=== PATIENT | male | born 1975 | race Caucasian/White ===

== ENCOUNTER 2020-10-05 15:03 | Observation (INO) ==
[2020-10-05 17:30] LABS: Basophils # (auto) 0.04 K/uL (0-0.2); Basophils % (auto) 0.3 %; Eosinophils # (auto) 0.16 K/uL (0-0.5); Eosinophils % (auto) 1.4 %; Hematocrit (blood only) 44.5 % (42-52); Hemoglobin 15.4 g/dL (14.0-18.0); Immature Granulocytes # (auto) 0.03 K/uL (0.00-0.02); Immature Granulocytes % (auto) 0.3 %; Lymphocytes # (auto) 2.08 K/uL (1.2-3.4); Lymphocytes % (auto) 17.6 %; Mean Corpuscular Hemoglobin 30.9 pg (25-34); Mean Corpuscular Hgb Conc 34.6 g/dL (32-36); Mean Corpuscular Volume 89.4 fL (80-100); Mean Platelet Volume 9.6 fL (7.4-10.4); Monocytes % (auto) 8.5 %; Neutrophils # (auto) 8.52 K/uL (1.4-6.5); Neutrophils % (auto) 71.9 %; Platelet Count 214 K/uL (130-400); RDW Coefficient of Variation 13.2 % (11.5-14.5); RDW Standard Deviation 43.5 fL (36.4-46.3); Red Blood Count 4.98 M/uL (4.7-6.1); White Blood Count 11.83 K/uL (4.8-10.8)
[2020-10-05 17:51] LABS: Albumin Level 4.1 gm/dl (3.4-5.0); BUN Creatinine Ratio 11.2 (10-20); Calcium 9.3 mg/dl (8.5-10.1); Creatinine Clr Calc Pharmacy 122.8 ml/min; Est GFR (African American) 118.3 ml/min; Est GFR (Non-African American) 102.1 ml/min
[2020-10-05 17:54] LABS: Albumin Globulin Ratio 1.1 (0.9-2); Bilirubin,Total 1.2 mg/dl (0.2-1); Globulin 3.6 gm/dl (2.5-4.0); Total Protein 7.7 gm/dl (6.4-8.2)
--- NOTE | 2020-10-05 18:03 | Emergency Department Note ---
History of Present Illness General Chief Complaint: Abdominal Pain Stated Complaint: ABDOMINAL PAIN Time Seen by Provider: 10/05/20 18:00 Source: patient Mode of arrival: ambulatory Limitations: no limitations History of Present Illness Provider Complaint: abdominal pain Onset (ago): day(s) (10) Pain Consistency: intermittent Location: R flank Radiation: other (Mid abdomen) Migration to: periumbilical Maximum Pain Intensity: 6 Quality: + sharp Relieved By: + nothing Exacerbated By: + bowel movement and + other (Palpation) Context: no foreign travel, no possible food poisoning, no sick contacts, no recent antibiotic use, no recent surgery/procedure, no recent injury or no history of similar episodes Associated Symptoms: + nausea and + diarrhea; no vomiting, no constipation, no hematochezia and no hematuria Treatments prior to arrival: none Home Medications Medication Instructions Recorded Confirmed Type No Known Home Medications 06/11/19 10/05/20 History Allergies Allergy/AdvReac Type Severity Reaction Status Date / Time aspirin AdvReac Unknown Verified 06/11/19 09:00 Past Med/Surg History Medical History Closed fracture of phalanx of left fourth toe Surgical History No pertinent past surgical history Social History Smoking Status: Never smoker Preferred Language: Welsh Feels Safe at Home: Yes Review of Systems See HPI for pertinent positives & negatives. and A total of 10 systems reviewed and were otherwise negative Physical Exam Vital Signs: Vital Signs - 24 hr 10/05/20 15:15 10/05/20 18:37 Temperature 36.3 C L Temperature Source Temporal Artery Sc an Pulse Rate 77 Pulse Rate [Finger ] 78 Pulse Rhythm Regular Pulse Strength Normal Respiratory Rate 16 18 Respiratory Effort / Characteristics Non-Labored Respiratory Depth Normal Respiratory Patter n Regular Blood Pressure 166/109 H Blood Pressure [Le ft Arm] 155/97 H Blood Pressure Ceci n 128 Blood Pressure Ceci n [Left Arm] 116 Pulse Oximetry 97 98 Oxygen Delivery Me thod Room Air Room Air Sepsis Recent Feve r Within 48 Hours No Sepsis New/Unexpla ined Change in Men marciano Status N/A Sepsis Action Take n by Nursing No Action Required Physical Exam: GENERAL: Wearing a mask. NAD, non-toxic. EYE EXAM: Normal conjunctiva. PERRL, no anisocoria and EOM's grossly intact w/o pain. NECK: Supple, no nuchal rigidity, no adenopathy, non-tender. No signs of meningismus. LUNGS: Clear to auscultation. Normal chest wall mechanics. HEART: NSR, no MRG. ABDOMEN: Abdomen soft, right-sided abdominal pain, negative obturators and psoas, no peritonitis normo-active bowel sounds, no masses, no rebound or guarding. BACK: No CVA TTP. SKIN: No rashes and no bruising. UPPER EXTREMITIES: Upper extremities are grossly normal. LOWER EXTREMITIES: Grossly normal, no edema. NEURO EXAM: A&O x3, cranial nerves II-XII grossly intact, normal speech, moves all 4 extremities on command w/o issue. Course Administered Medications Discontinued Medications Cefoxitin Sodium (Mefoxin) 2,000 mg in 60 mls @ 100 mls/hr IV NOW STA Stop: 10/05/20 20:34 Last Admin: 10/05/20 20:12 Dose: 100 mls/hr Documented by: [id number] Ioversol (Optiray 320 100ml) 93 ml IV ONCE ONE Stop: 10/05/20 18:44 Last Admin: 10/05/20 18:44 Dose: 93 ml Documented by: [id number] Medical Decision Making Differential Diagnosis Appendicitis, testicular torsion, infections, diverticulitis, UTI, obstruction, mesenteric ischemia, aortic pathology, inflammatory bowel disease, renal colic, PUD, pancreatitis, biliary pathology, hernia, volvulus, constipation, as well as other pathologies. Medical Records Attestation: I reviewed the patient's medical records. Home Medications Current Medication List: was personally reviewed by me Laboratory Data Attestation: I reviewed the patient's lab results. Result diagrams: 10/05/20 17:20 10/05/20 17:20 Lab Results 10/05/20 10/05/20 10/05/20 Range/Units 17:20 17:20 20:20 WBC 11.83 H (4.8-10.8) K/uL RBC 4.98 (4.7-6.1) M/uL Hgb 15.4 (14.0-18.0) g/dL Hct 44.5 (42-52) % MCV 89.4 (80-100) fL MCH 30.9 (25-34) pg MCHC 34.6 (32-36) g/dL RDW Std Deviation 43.5 (36.4-46.3) fL RDW Coeff of Hunter 13.2 (11.5-14.5) % Plt Count 214 (130-400) K/uL MPV 9.6 (7.4-10.4) fL Immature Gran % (Auto) 0.3 % Neut % (Auto) 71.9 % Lymph % (Auto) 17.6 % Hoke % (Auto) 8.5 % Eos % (Auto) 1.4 % Baso % (Auto) 0.3 % Neut # (Auto) 8.52 H (1.4-6.5) K/uL Lymph # (Auto) 2.08 (1.2-3.4) K/uL Hoke # (Auto) 1.00 H (0.11-0.59) K/uL Eos # (Auto) 0.16 (0-0.5) K/uL Baso # (Auto) 0.04 (0-0.2) K/uL Immature Gran # (Auto) 0.03 H (0.00-0.02) K/uL Sodium 133 L (136-145) mmol/L Potassium 4.0 (3.5-5.1) mmol/L Chloride 107 (98-107) mmol/L Carbon Dioxide 26 (21-32) mmol/L Anion Gap -1.0 L (3-11) BUN 10 (7-18) mg/dl Creatinine 0.90 (0.6-1.4) mg/dl Est Cr Clr Drug Dosing 122.8 ml/min Est GFR ( Amer) 118.3 ml/min Est GFR (Non-Af Amer) 102.1 ml/min BUN/Creatinine Ratio 11.2 (10-20) Glucose 90 (70-99) mg/dl Calcium 9.3 (8.5-10.1) mg/dl Total Bilirubin 1.2 H (0.2-1) mg/dl AST 15 (15-37) U/L ALT 33 (12-78) U/L Alkaline Phosphatase 72 (45-117) U/L Total Protein 7.7 (6.4-8.2) gm/dl Albumin 4.1 (3.4-5.0) gm/dl Globulin 3.6 (2.5-4.0) gm/dl Albumin/Globulin Ratio 1.1 (0.9-2) Lipase 179 (73-393) U/L COVID-19 Eval Order Covid19 at [facility] Imaging Data Radiologist's Impression: Abdomen/Pelvis CT 10/05/20 18:[address] WITH IV CONTRAST CT DOSE: 714.27 mGy.cm HISTORY: Right-sided abdominal pain. TECHNIQUE: Multiaxial CT images of the abdomen and pelvis were performed following the use of intravenous contrast. A dose lowering technique was utilized adhering to the principles of ALARA. COMPARISON STUDY: None. FINDINGS: The right lung base is clear. There is a 3 linear subpleural nodular density within the left lower lobe on image 24. This is of doubtful clinical significance given the size and location. No pneumoperitoneum. No pneumatosis. Bilateral L5 spondylolysis with associated grade 1 anterolisthesis. There is new millimeter hypodense lesion within the right hepatic dome on image 31. This is technically too small to characterize. The spleen, adrenal glands, pancreas, kidneys, and gallbladder are unremarkable. No retroperitoneal lymphadenopathy. Normal caliber abdominal aorta. The bladder is unremarkable. Trace pelvic free fluid. No bowel obstruction. There is a thick-walled and fluid-filled appendix with periappendiceal fat stranding. The appendix measures up to 1.5 cm in diameter. This is consistent with acute appendicitis. No perforation or abscess identified at this time. IMPRESSION: Acute appendicitis. ACT 112: Negative or not required by law. Electronically signed by: Francisco Muir M.D. 10/05/2020 7:43 PM [facility] Narrative Patient does present with concern for acute on chronic abdominal symptoms. The patient states that back in August the patient had a vague illness with low-grade temperature and associated uncomfortable bowel movements. The patient states that he did feel improved but within the last 10 days the patient has had increasingly more constant discomfort in his right abdomen which is nonmigratory to the mid abdomen. The patient denies any fevers chills chest pains or shortness of breath in the last 10 days. The patient has had looser stools. Th e patient does complain of some mild discomfort in the suprapubic area but denies any hematuria or dysuria. No recent heavy lifting twisting or turning or trauma. The patient denies any testicular or scrotal pain swelling or penile pain or swelling or drainage. Patient did have blood work completed along with a CT abdomen pelvis. Patient declines any pain or nausea medication at this time. Patient did secure an outpatient appointment but not to Monday. Patient is vaccinated for Covid. Patient's blood works shows white count of 11.8 with normal H&H and platelet count. The patient's kidney function is unremarkable with very mild hyponatremia. Bilirubin 1.2 the patient has no right upper quadrant pain the rest of the LFTs and lipase are normal. Patient CT of the pelvis did show concern for acute appendicitis. Patient was ordered Mefoxin and I did speak with Dr. Sharma. Dr. Sharma will take the patient to the operating room. Impression & Plan Acute appendicitis Discharge Plan Visit Data Chief Complaint: Abdominal Pain Stated Complaint: ABDOMINAL PAIN ED Provider: Jace Seymour Discharge Problem: Acute appendicitis Patient Disposition: Being Evaluated by Surgeon Forms Stand Alone Forms: My [facility] [place] [facility] Prescriptions Prescriptions: No Action No Known Home Medications RF: 0 Referrals Referrals: Traci Sam DO [Outside Practitioners] -
[2020-10-05] MEDS ORDERED: OPTIRAY 320 100ml IV ONE (18:43)
--- NOTE | 2020-10-05 19:45 | CT Scan Report ---
ABDOMEN AND PELVIS CT WITH IV CONTRAST CT DOSE: 714.27 mGy.cm HISTORY: Right-sided abdominal pain. TECHNIQUE: Multiaxial CT images of the abdomen and pelvis were performed following the use of intrave nous contrast. A dose lowering technique was utilized adhering to the principles of ALARA. COMPARISON STUDY: None. FINDINGS: The right lung base is clear. There is a 3 linear subpleural nodular density within the lef t lower lobe on image 24. This is of doubtful clinical significance given the size and location. No p neumoperitoneum. No pneumatosis. Bilateral L5 spondylolysis with associated grade 1 anterolisthesis. There is new millimeter hypodense lesion within the right hepatic dome on image 31. This is technical ly too small to characterize. The spleen, adrenal glands, pancreas, kidneys, and gallbladder are unre markable. No retroperitoneal lymphadenopathy. Normal caliber abdominal aorta. The bladder is unremark able. Trace pelvic free fluid. No bowel obstruction. There is a thick-walled and fluid-filled appendi x with periappendiceal fat stranding. The appendix measures up to 1.5 cm in diameter. This is consist ent with acute appendicitis. No perforation or abscess identified at this time. IMPRESSION: Acute appendicitis. ACT 112: Negative or not required by law. Electronically signed by: Francisco Muir M.D. 10/05/2020 7:43 PM
[2020-10-05] MEDS ORDERED: cefOXitin 2,000 MG/60 ML BAG IV STA (19:59)
[2020-10-05] MEDS ORDERED: BUPIVACAINE 0.5 % 5 MG/1 ML MPF 30ML VIAL ONE (20:38)
[2020-10-05] MEDS ORDERED: EPINEPHrine INJ 1 MG/ML AMP ONE (20:38)
--- NOTE | 2020-10-05 21:18 | History & Physical Report ---
Date of Service October 05, 2020 Assessment & Plan (1) Acute appendicitis: Plan: pt's clinical picture, labs are consistent with acute appendicitis. discussed his options/risks including but not limited to bleeding/infection/injury to another organ, dvt/pe/mi/cva etc... questions answered. will proceed tonight with lap appendectomy. Acute appendicitis type: with localized peritonitis Appendicitis abscess presence: without abscess Appendicitis gangrene presence: without gangrene Appendicitis perforation presence: without perforation Qualified Code(s): K35.30 - Acute appendicitis with localized peritonitis, without perforation or gangrene History of Present Illness Primary Care Provider: Kofi Negro DO 45-year-old male with a 1 week history of abdominal pain. Originally it was generalized but is now progressed to the right mid the right lower quadrant. Pain got worse today so he presented to the emergency room. Work-up reveals nonruptured acute appendicitis. Allergies Allergy/AdvReac Type Severity Reaction Status Date / Time aspirin AdvReac Unknown Verified 06/11/19 09:00 Home Medications Medication Instructions Recorded Confirmed Type No Known Home Medications 06/11/19 10/05/20 History Past Med/Surg History Medical History Closed fracture of phalanx of left fourth toe Surgical History No pertinent past surgical history Social History Smoking Status: Never smoker Preferred Language: Nauruan Feels Safe at Home: Yes Review of Systems All systems reviewed & are unremarkable except as noted in HPI & below Physical Exam Constitutional: WD/WN, vitals as above no acute distress and not ill appearing Eyes: PERRL, conjunctivae normal, anicteric sclerae EOM intact bilaterally ENMT: external ear and nose normal, oropharynx normal Ears: no hearing impairment Neck: trachea midline, no thyromegaly Respiratory: normal respiratory effort; no respiratory distress and does not use accessory muscles Cardiovascular: Rate/Rhythm: regular rate and regular rhythm Gastrointestinal (Abdomen): Soft. Positive right lower quadrant tenderness. Positive rebound. Skin: no rashes, warm and dry Psychiatric: Orientation: alert, oriented x 3 and cooperative Results & Data ([facility]) Vital Signs (Past 12 Hours) Vital Signs Temp Pulse Pulse Resp BP BP Pulse Ox 10/05/20 18:37 78 18 155/97 H 98 10/05/20 15:15 36.3 C L 77 16 166/109 H 97
[2020-10-05] MEDS ORDERED: ONDANSETRON INJ 2 MG/ML 2 ML VIAL ONE (21:27)
[2020-10-05] MEDS ORDERED: MIDAZOLAM HCL 1 MG/ML 2ML VIAL ONE (21:27)
[2020-10-05] MEDS ORDERED: DEXAMETHASONE SOD INJ 4 MG/ML VIAL ONE (21:27)
[2020-10-05] MEDS ORDERED: PROPOFOL IV EMULSION 10 MG/ML 20 ML VIAL IV ONE (21:27)
[2020-10-05] MEDS ORDERED: ETOMIDATE 2 MG/ML 20 ML VIAL IV ONE (21:27)
[2020-10-05] MEDS ORDERED: SUCCINYLCHOLINE 100MG/5ML SYR IV ONE (21:27)
[2020-10-05] MEDS ORDERED: KETOROLAC 30 MG/ML VIAL ONE (21:27)
[2020-10-05] MEDS ORDERED: fentaNYL citrate 100 MCG/2 ML VIAL ONE ×2 (21:28→22:23)
[2020-10-05] MEDS ORDERED: ONDANSETRON INJ 2 MG/ML 2 ML VIAL IV PRN (21:59)
[2020-10-05] MEDS ORDERED: fentaNYL citrate 100 MCG/2 ML VIAL IV PRN (21:59)
[2020-10-05] MEDS ORDERED: ePHEDrine sulfate 50 MG/ML AMP IV PRN (21:59)
[2020-10-05] MEDS ORDERED: ATROPINE SULFATE 0.1 MG/ML 10ML SYR IV PRN (21:59)
[2020-10-05] MEDS ORDERED: HYDROmorphone INJ 2 MG/ML SYR/VIAL IV PRN (21:59)
--- NOTE | 2020-10-05 21:59 | Anesthesiology Consultation ---
Date of Service October 05, 2020 Assessment & Plan ASA ASA2E Proposed Anesthesia Anesthesia Type: General Risk / Benefits Reviewed With: PT / POA / Parent / Guardian, Accepts Plan and Informed Consent Obtained History Surgery Operation Date: 10/05/20 21:30 Proposed Procedures p Laparoscopic Appendectomy(Not Applicable) - Bro Sharma DO Height/Weight Height: 5 ft 10 in Weight: 102.1 kg Allergies Allergy/AdvReac Type Severity Reaction Status Date / Time aspirin AdvReac Unknown Verified 06/11/19 09:00 Medications Home Medications Medication Instructions Recorded Confirmed Last Taken No Known Home Medications 06/11/19 10/05/20 Unknown NPO Date Last Intake of Fluids: 10/05/20 Time Last Intake of Fluids: 13:00 Date Last Intake of Solids: 10/05/20 Time Last Intake of Solids: 00:00 Past Medical History Medical History Closed fracture of phalanx of left fourth toe Exercise / Class Metabolic Activity 1 > 8 Run/Swim/Ski/Tennis Past Surgical History Surgical History No pertinent past surgical history Past Anesthesia History No Hx of Anesthesia Complications and No Family Hx of Anesthesia Complications History of PONV No Hx of PONV and No Hx of Motion Sickness Social History Smoking Status: Never smoker Review of Systems denies fever/cough/ colds/ chest pain/ SOB/ ISMAEL denies ISMAEL Physical Exam Vital Signs Last Vital Signs Temp 36.3 C L 10/05/20 15:15 Pulse 78 10/05/20 18:37 Resp 18 10/05/20 18:37 BP 155/97 H 10/05/20 18:37 Pulse Ox 98 10/05/20 18:37 ENMT Mouth: no TMJ abnormality and no dentition abnormality Thyromental Distance: > or= 3.5 Finger Breadths Mallampati Class: II Neck neck extension not limited Respiratory normal respiratory effort; no respiratory distress Auscultation: lungs clear to auscultation bilaterally Cardiovascular Rate/Rhythm: regular rate and regular rhythm Neurologic moves all extremities Psychiatric Orientation: alert and oriented x 3 Testing Laboratory Results 10/05/20 17:20 10/05/20 17:20
--- NOTE | 2020-10-05 23:03 | Operative Report ---
PG Post Operative Report Pre & Post Diagnosis Operation Date: 10/05/20 21:30 Pre-Op Diagnosis: Acute appendicitis Post-Op Diagnosis: Acute appendicitis I identified the patient and participated in the time-out.: Yes Procedure Operation Date: 10/05/20 21:30 Actual Procedures p Laparoscopic Appendectomy(Not Applicable) - Bro Sharma DO Surgeon Bro Sharma DO Human Geography Instructor n/a Estimated Blood Loss 10 Findings Consistent with Post-Op Diagnosis Specimens appendix Description of Procedure After informed consent was obtained the patient was taken to the operating room and placed in supine position. After successful intubation a Bhatti catheter was placed and the left arm was tucked. A Bhatti catheter was inserted sterilely. I began by making a periumbilical incision with an 11 blade scalpel and carried this down through the soft tissue using electrocautery. The anterior rectus fascia was opened using electrocautery and 2 #0 Vicryl stay sutures were placed. The peritoneum was elevated using hemostats and incised under direct vision using a Metzenbaum scissor. A finger sweep was performed. A 12 mm Mcguire trocar was placed and the abdomen was insufflated to 18 mmHg. A laparoscope was inserted and the abdomen was examined in 360. A suprapubic 5 mm port and a left lower quadrant 12 mm port were placed under direct vision. The patient was air planed to the left as well as placed in a slight Trendelenburg position. We began by looking in the right lower quadrant. We were able to readily identify the appendix and it was grossly inflamed. It had not perforated. There is a small amount of purulent fluid in the right lower quadrant and the pelvis. We immediately irrigated and suctioned this out. I was able to use primarily blunt dissection to pull the appendix away from the right lower quadrant sidewall. I was then able to use a NARCISA brown cartridge stapler to transect the mesentery of the appendix and a purple cartridge 60 mm stapler to transect the appendix itself at its base with the cecum. It was then placed into an Endo Catch bag and removed from the camera port site. We thoroughly irrigated the right lower quadrant as well as the pelvis. There is a small amount of bleeding on the mesenteric staple line I therefore used a 10 mm clip sheet metal worker supervisor to clip the appendiceal artery. Following placement of the clip, there was adequate hemostasis. I ran the small bowel backwards from the terminal ileum for about 6 feet all of which was normal. All the peritoneal surfaces were normal. Small/ large bowel, liver, stomach etc. all appeared grossly normal. We did a final irrigation and then removed all the trochars and desufflated the abdomen. The fascia of the camera port as well as the left lower quadrant were closed using 0 Vicryl in [id number] fashion. Wounds were all irrigated and closed using 4-0 Monocryl. Marcaine was injected around them for postoperative analgesia and skin glue used as a dressing. The patient was awakened extubated and transferred to recovery in stable condition. I attest to the content of the Intraoperative Record and any orders documented therein. Any exceptions are noted below. I attest to the content of the Intraoperative Record and any orders documented therein. Any exceptions are noted below.
--- NOTE | 2020-10-05 23:13 | Anesthesiology Progress Note ---
Date of Service October 05, 2020 Anesthesia Post Procedure Vital Signs Vital Signs: Temp Pulse Pulse Resp BP BP Pulse Ox 10/05/20 18:37 78 18 155/97 H 98 10/05/20 15:15 36.3 C L 77 16 166/109 H 97 Pain Intensity Abdomen: Pain Intensity: 6 Transfer of Care Handoff Completed per policy Notes Mental Status: alert / awake / arousable and participated in evaluation Patient Amnestic to Procedure: Yes Nausea / Vomiting: adequately controlled Pain: adequately controlled Airway Patency, RR, SpO2: stable & adequate BP & HR: stable & adequate Hydration State: stable & adequate Anesthetic Complications: no major complications apparent and Pt Satisfied with anesthetic care
[2020-10-06] MEDS ORDERED: ONDANSETRON INJ 2 MG/ML 2 ML VIAL IV PRN (00:04)
[2020-10-06] MEDS ORDERED: HYDROmorphone INJ 0.5 MG/0.5 ML SYR IV PRN (00:04)
[2020-10-06] MEDS ORDERED: oxyCODONE/ACETAMINOPHEN 5mg/325mg TAB PO PRN ×2 (00:04)
[2020-10-06 00:47] LABS: Basophils # (auto) 0.02 K/uL (0-0.2); Basophils % (auto) 0.2 %; Eosinophils # (auto) 0.08 K/uL (0-0.5); Eosinophils % (auto) 0.7 %; Hematocrit (blood only) 42.6 % (42-52); Hemoglobin 14.7 g/dL (14.0-18.0); Immature Granulocytes # (auto) 0.05 K/uL (0.00-0.02); Immature Granulocytes % (auto) 0.4 %; Lymphocytes # (auto) 0.99 K/uL (1.2-3.4); Lymphocytes % (auto) 8.2 %; Mean Corpuscular Hemoglobin 31.2 pg (25-34); Mean Corpuscular Hgb Conc 34.5 g/dL (32-36); Mean Corpuscular Volume 90.4 fL (80-100); Mean Platelet Volume 9.5 fL (7.4-10.4); Monocytes # (auto) 0.36 K/uL (0.11-0.59); Neutrophils # (auto) 10.64 K/uL (1.4-6.5); Neutrophils % (auto) 87.5 %; Platelet Count 190 K/uL (130-400); RDW Coefficient of Variation 13.2 % (11.5-14.5); RDW Standard Deviation 44.1 fL (36.4-46.3); Red Blood Count 4.71 M/uL (4.7-6.1); White Blood Count 12.14 K/uL (4.8-10.8)
[2020-10-06] MEDS: LACTATED RINGER'S 1,000 ML IV SCH ×2 (01:47→08:29)
[2020-10-06] MEDS: ACETAMINOPHEN 1,000 MG/100 ML VIAL IV SCH ×2 (01:47→09:09)
[2020-10-06] MEDS: AMPICILLIN/SULBACTAM SOD 1,500 MG in 0.9 % SODIUM CHLORIDE 100 ML IV SCH ×2 (02:53→07:53)
[2020-10-06 06:21] LABS: Hematocrit (blood only) 42.6 % (42-52); Hemoglobin 14.4 g/dL (14.0-18.0); Immature Granulocytes # (auto) 0.02 K/uL (0.00-0.02); Immature Granulocytes % (auto) 0.2 %; Lymphocytes % (auto) 6.9 %; Mean Corpuscular Hemoglobin 30.4 pg (25-34); Mean Corpuscular Hgb Conc 33.8 g/dL (32-36); Mean Corpuscular Volume 89.9 fL (80-100); Mean Platelet Volume 9.6 fL (7.4-10.4); Monocytes # (auto) 0.24 K/uL (0.11-0.59); Monocytes % (auto) 2.8 %; Neutrophils # (auto) 7.81 K/uL (1.4-6.5); Neutrophils % (auto) 90.1 %; Platelet Count 215 K/uL (130-400); RDW Coefficient of Variation 13.1 % (11.5-14.5); RDW Standard Deviation 43.4 fL (36.4-46.3); Red Blood Count 4.74 M/uL (4.7-6.1); White Blood Count 8.67 K/uL (4.8-10.8)
--- NOTE | 2020-10-06 09:40 | Anesthesiology Progress Note ---
Date of Service October 06, 2020 Anesthesia Post Procedure Vital Signs Vital Signs: Temp Pulse Pulse Pulse Resp BP BP 10/06/20 07:55 36.5 C 69 16 10/06/20 02:45 36.4 C L 75 16 10/06/20 01:50 37.0 C 74 12 10/06/20 00:45 36.8 C 71 16 10/06/20 00:15 37.0 C 72 16 10/06/20 00:08 37.0 C 78 16 150/98 H 10/05/20 23:30 36.9 C 69 17 136/92 10/05/20 23:20 36.9 C 79 17 138/89 10/05/20 23:10 79 17 144/91 H 10/05/20 23:00 36.5 C 92 H 17 154/92 H 10/05/20 18:37 78 18 155/97 H 10/05/20 15:15 36.3 C L 77 16 166/109 H BP Pulse Ox 10/06/20 07:55 121/81 98 10/06/20 02:45 132/86 96 10/06/20 01:50 144/85 H 97 10/06/20 00:45 147/92 H 99 10/06/20 00:15 145/88 H 96 10/06/20 00:08 96 10/05/20 23:30 100 10/05/20 23:20 99 10/05/20 23:10 100 10/05/20 23:00 96 10/05/20 18:37 98 10/05/20 15:15 97 Pain Intensity Abdomen: Pain Intensity: 4 Notes Mental Status: alert / awake / arousable and participated in evaluation Patient Amnestic to Procedure: Yes Nausea / Vomiting: adequately controlled Pain: adequately controlled Airway Patency, RR, SpO2: stable & adequate BP & HR: stable & adequate Hydration State: stable & adequate Anesthetic Complications: no major complications apparent and Pt Satisfied with anesthetic care
--- NOTE | 2020-10-06 12:50 | Surgery Progress Note ---
Date of Service October 06, 2020 Assessment & Plan (1) Acute appendicitis: Plan: POD#1 lap appy Patient is doing well WBC 8.6 (11), patient afebrile Okay to advance diet as tolerates Dispo instructions reviewed Plan on discharge to home with f/u in clinic with Dr. Sharma in 1-2 weeks. No abx indicated upon dispo Admission and Anticipated Discharge Date Admission Date: October 05, 2020 Subjective Patient is doing well. Has some expected post surgical discomfort, but it is manageable. Has been ambulating. Tolerating liquid diet so far. Physical Exam Physical Exam: awake/alert, NAD Gastrointestinal (Abdomen): Inspection/Auscultation: + abdominal surgical incision (c/d/i with dermabond) Results & Data ([facility]) Vital Signs (Past 12 Hours) Vital Signs Temp Pulse Resp BP Pulse Ox 10/06/20 11:37 37.0 C 67 16 150/83 H 99 10/06/20 07:55 36.5 C 69 16 121/81 98 10/06/20 02:45 36.4 C L 75 16 132/86 96 10/06/20 01:50 37.0 C 74 12 144/85 H 97 PG Care Time/CCT Total # of Minutes Spent Total Time Spent with Patient: Total time spent is greater than 50% in coordination of care (as documented) at patient's floor/unit and/or counseling patient: Coding Level of Care Code None Diagnoses Acute appendicitis K35.30 Acute appendicitis type: with localized peritonitis Appendicitis abscess presence: without abscess Appendicitis gangrene presence: without gangrene Appendicitis perforation presence: without perforation (1) Acute appendicitis Acute appendicitis type: with localized peritonitis Appendicitis abscess presence: without abscess Appendicitis gangrene presence: without gangrene Appendicitis perforation presence: without perforation Qualified Code(s): K35.30 - Acute appendicitis with localized peritonitis, without perforation or gangrene
== END 2020-10-06 13:31 | disposition home or self-care (01) ==
LOC: 3E 15:03 → ED 15:03 → 3E 21:51